=== PATIENT | male | born 1950 | race Two or more races ===

== ENCOUNTER 2022-06-27 06:30 | Day surgery (SDC) | payer OTHER | END 2022-06-27 10:25 | disposition home or self-care (01) | LOC: AMB-ENDOS 06:30 | PROVIDERS: ATTEND Colon & Rectal Surgery | DX: D12.3 Benign neoplasm of transverse colon (principal); Z20.822 Contact with and (suspected) exposure to COVID-19; K57.30 Diverticulosis of large intestine without perforation or abscess without bleeding; I10 Essential (primary) hypertension; G47.33 Obstructive sleep apnea (adult) (pediatric); Z86.010 Personal history of colon polyps ==

== ENCOUNTER 2023-04-06 11:54 | Outpatient (CLI) | payer OTHER | END 2023-04-06 12:01 | disposition home or self-care (01) | LOC: NUCLEAR 11:54 | PROVIDERS: ATTEND Orthopaedic Surgery | DX: M81.0 Age-related osteoporosis without current pathological fracture (principal) ==

== ENCOUNTER 2023-04-25 09:18 | Outpatient (CLI) | payer OTHER ==
[~2023-04-25] VITALS: Ht 170.2 cm; Wt 86.2 kg
== END 2023-04-25 09:25 | disposition home or self-care (01) ==
LOC: LAB 09:18
PROVIDERS: ATTEND Orthopaedic Surgery
DX: D64.89 Other specified anemias (principal); E88.89 Other specified metabolic disorders; D68.8 Other specified coagulation defects; N39.0 Urinary tract infection, site not specified; Z22.322 Carrier or suspected carrier of Methicillin resistant Staphylococcus aureus; E11.9 Type 2 diabetes mellitus without complications; I10 Essential (primary) hypertension; I49.9 Cardiac arrhythmia, unspecified; Z76.89 Persons encountering health services in other specified circumstances

== ENCOUNTER 2023-05-04 07:45 | Inpatient (IN) | payer OTHER ==
[~2023-05-04] VITALS: Ht 170.2 cm; Wt 85.3 kg
[2023-05-18] MEDS ORDERED: LOSARTAN-HCTZ1 EAC2 PO (09:11)
[2023-05-22] MEDS ORDERED: FAMOTIDINE40 MG (15:29)
[2023-05-22] MEDS ORDERED: XARELTO10 M1 (15:29)
[2023-05-22] MEDS ORDERED: DICLOFENAC SOD100 GM (15:29)
[2023-05-22] MEDS ORDERED: AMLODIPINE BESYL5 MG (15:29)
[2023-05-22] MEDS ORDERED: SIMVASTATIN5 MG (15:30)
[2023-05-22] MEDS ORDERED: ST. JOSEPH ASPI81 M2 (15:30)
[2023-05-22] MEDS ORDERED: SULINDAC200 MG (15:30)
[2023-05-22] MEDS ORDERED: ALLOPURINOL100 MG (15:30)
== END 2023-05-23 13:27 | disposition home or self-care (01) | DRG 489 ==
LOC: SURG 05-22 07:45 → O/R 05-22 08:10 → SURG 05-22 13:45 → SURH 05-22 15:48
PROVIDERS: ADMIT Orthopaedic Surgery; ATTEND Orthopaedic Surgery
PROC: 0SBC0ZZ Excision of Right Knee Joint, Open Approach (ICD-10-PCS; principal; 2023-05-22 13:45)
DX: M93.961 Osteochondropathy, unspecified, right lower leg (principal); M65.9 Synovitis and tenosynovitis, unspecified; M17.11 Unilateral primary osteoarthritis, right knee; Z20.822 Contact with and (suspected) exposure to COVID-19

== ENCOUNTER 2023-05-09 15:23 | Outpatient (CLI) | payer OTHER | END 2023-05-09 15:24 | disposition home or self-care (01) | LOC: LAB 15:23 | PROVIDERS: ATTEND Orthopaedic Surgery | DX: N39.0 Urinary tract infection, site not specified (principal) ==

== ENCOUNTER 2023-06-01 14:37 | Emergency (ER) | payer OTHER ==
[~2023-06-01] VITALS: Ht 171.4 cm; Wt 85.3 kg
[~2023-06-01 14:37] MED LIST: ALLOPURINOL100 MG; AMLODIPINE BESYL5 MG; DICLOFENAC SOD100 GM; FAMOTIDINE40 MG; LOSARTAN-HCTZ1 EAC2 PO; SIMVASTATIN5 MG; ST. JOSEPH ASPI81 M2; SULINDAC200 MG; XARELTO10 M1
[2023-06-01] MEDS ORDERED: BACTRIM DS TAB1 EACH PO (17:16)
== END 2023-06-01 17:55 | disposition home or self-care (01) ==
LOC: ER 14:37
DX: L03.115 Cellulitis of right lower limb (principal); I10 Essential (primary) hypertension

== ENCOUNTER → 2023-08-16 11:30 | Outpatient (CLI) | payer OTHER ==
[~2023-08-16 11:30] MED LIST changes: +BACTRIM DS TAB1 EACH PO
== END | disposition home or self-care (01) ==
LOC: LAB 11:30
PROVIDERS: ATTEND Orthopaedic Surgery
DX: M25.461 Effusion, right knee (principal)

== ENCOUNTER 2023-08-17 08:01 | Outpatient (CLI) | payer OTHER | END 2023-08-17 08:02 | disposition home or self-care (01) | LOC: LAB 08:01 | PROVIDERS: ATTEND Orthopaedic Surgery | DX: E55.9 Vitamin D deficiency, unspecified (principal); M85.9 Disorder of bone density and structure, unspecified; E56.1 Deficiency of vitamin K ==